=== PATIENT | male | born 1935 | race Two or more races ===

== ENCOUNTER 2017-05-21 09:03 | Outpatient (CLI) | payer OTHER ==
[~2017-05-21 09:03] MED LIST: ZANTAC300 MG PO
== END 2017-05-21 09:19 | disposition home or self-care (01) ==
LOC: LAB 09:03
DX: D51.0 Vitamin B12 deficiency anemia due to intrinsic factor deficiency (principal); E83.110 Hereditary hemochromatosis; J84.112 Idiopathic pulmonary fibrosis; J84.10 Pulmonary fibrosis, unspecified; L80 Vitiligo; I10 Essential (primary) hypertension; I25.10 Atherosclerotic heart disease of native coronary artery without angina pectoris; D50.8 Other iron deficiency anemias; D51.8 Other vitamin B12 deficiency anemias; D51.1 Vitamin B12 deficiency anemia due to selective vitamin B12 malabsorption with proteinuria; E03.8 Other specified hypothyroidism; E06.3 Autoimmune thyroiditis

== ENCOUNTER 2017-05-21 09:58 | Outpatient (CLI) | payer OTHER | END 2017-05-21 10:21 | disposition home or self-care (01) | LOC: SONOGRAMA 09:58 | DX: E03.8 Other specified hypothyroidism (principal); E04.2 Nontoxic multinodular goiter; E06.3 Autoimmune thyroiditis; D51.0 Vitamin B12 deficiency anemia due to intrinsic factor deficiency; E83.110 Hereditary hemochromatosis; J84.112 Idiopathic pulmonary fibrosis; J84.10 Pulmonary fibrosis, unspecified; L80 Vitiligo; I10 Essential (primary) hypertension; I25.10 Atherosclerotic heart disease of native coronary artery without angina pectoris ==

== ENCOUNTER → 2017-08-03 10:02 | Outpatient (CLI) | payer OTHER | END | disposition home or self-care (01) | LOC: LAB 10:02 | DX: E03.8 Other specified hypothyroidism (principal) ==

== ENCOUNTER 2017-08-09 09:32 | Outpatient (CLI) | payer OTHER | END 2017-08-09 10:03 | disposition home or self-care (01) | LOC: TOM 09:32 | DX: D21.4 Benign neoplasm of connective and other soft tissue of abdomen (principal); D69.6 Thrombocytopenia, unspecified; R79.89 Other specified abnormal findings of blood chemistry; R43.2 Parageusia | CPT/HCPCS: 74160; Q9965 ==

== ENCOUNTER → 2018-09-05 07:52 | Outpatient (CLI) | payer OTHER | END | disposition home or self-care (01) | LOC: LAB 07:52 | DX: E03.8 Other specified hypothyroidism (principal); R97.0 Elevated carcinoembryonic antigen [CEA]; R97.20 Elevated prostate specific antigen [PSA]; R97.8 Other abnormal tumor markers; D51.0 Vitamin B12 deficiency anemia due to intrinsic factor deficiency; J84.112 Idiopathic pulmonary fibrosis; L80 Vitiligo; I10 Essential (primary) hypertension; I25.10 Atherosclerotic heart disease of native coronary artery without angina pectoris; D50.8 Other iron deficiency anemias; D51.8 Other vitamin B12 deficiency anemias ==

== ENCOUNTER 2018-10-04 08:55 | Outpatient (CLI) | payer OTHER | END 2018-10-04 08:57 | disposition home or self-care (01) | LOC: NUCLEAR 08:55 | DX: R97.0 Elevated carcinoembryonic antigen [CEA] (principal) | CPT/HCPCS: 78816; A9552 ==

== ENCOUNTER 2018-10-15 11:11 | Outpatient (CLI) | payer OTHER | END 2018-10-15 11:20 | disposition home or self-care (01) | LOC: LAB 11:11 | DX: D51.0 Vitamin B12 deficiency anemia due to intrinsic factor deficiency (principal); J84.112 Idiopathic pulmonary fibrosis; J84.10 Pulmonary fibrosis, unspecified; L80 Vitiligo; I10 Essential (primary) hypertension; I25.10 Atherosclerotic heart disease of native coronary artery without angina pectoris; E03.8 Other specified hypothyroidism; D50.8 Other iron deficiency anemias; D51.8 Other vitamin B12 deficiency anemias; R97.0 Elevated carcinoembryonic antigen [CEA] ==